=== PATIENT | male | born 1985 | race Caucasian/White ===

== ENCOUNTER 2017-03-04 19:00 | Emergency (ER) | payer OTHER ==
[2016-11-01 10:06] VITALS: Wt 67.1 kg
[~2017-03-04 19:00] MED LIST: AMOX-559 PO; AMOX1TAB9 PO; DIPH-740 PO; DOCU-202 PO; IBUP600T22 PO; IBUP800T37 PO; PANT40TA65 PO; PER PO
--- NOTE | 2017-03-04 19:22 | ER Report ---
History and Physical Time Seen By MD: 19:21 Hx. of Stated Complaint: Patient reports that he hit a rock with his hand while sledding. HPI/ROS CHIEF COMPLAINT: Right hand injury HISTORY OF PRESENT ILLNESS: This is a 31-year-old male who presents to the emergency department for a right hand injury. Peak patient states that he was sledding today and while he was sliding his hand hit a rock at about 2:30 this afternoon since then he's had marked increase in swelling and pain. Patient states he did take 800 mg of ibuprofen about 3:30 this afternoon which helped a little. Patient has also applied ice and has kept it elevated since the injury. Patient denies any other complaints at this time no nausea, vomiting, diarrhea, aches or chills. No complaints of elbow discomfort or shoulder discomfort at this time. REVIEW OF SYSTEMS: Respiratory: No cough, no dyspnea. Cardiovascular: No chest pain, no palpitations. Gastrointestinal: No vomiting, no abdominal pain. Musculoskeletal: As above. Allergies: Coded Allergies: Sulfa (Sulfonamide Antibiotics) (Verified Allergy, Unknown, 08/16/15) swelling itching Home Meds Active Scripts Hydrocodone Bit/Acetaminophen (HYDROCODON-ACETAMINOPHEN 5-325) 1 Each Tablet, 1 EACH PO Q4-6H Y for PAIN, #12 TAB Prov:SUMAYA LEZAMA DESIGN PAINTER-BC 03/04/17 Discontinued Reported Medications Diphenhydramine Hcl (BENADRYL) 25 Mg Capsule, 25 MG PO Q6-8H Y for allergies, CAPSULE 08/16/15 Discontinued Scripts Amoxicillin/Pot Clav 875-125 Mg Tab (AUGMENTIN 875-125 TABLET) 1 Each Tablet, 1 TAB PO BID, #14 TAB Prov:IDA VILLANUEVA MD 11/05/16 Pantoprazole Sodium (PANTOPRAZOLE SODIUM) 40 Mg Tablet.dr, 1 TAB PO QDAY, #20 TAB 0 Refills Take once every day until you are no longer requiring ibuprofen Prov:IDA VILLANUEVA MD 11/04/16 Ibuprofen (IBUPROFEN) 600 Mg Tablet, 1 TAB PO Q6H Y for PAIN, #30 TAB 0 Refills Prov:IDA VILLANUEVA MD 11/04/16 Oxycodone/Acetaminophen (OXYCODONE/ACETAMINOPHEN 5MG/325 MG) 5 Mg/325 Mg Tab, 1- 2 TAB PO Q4H Y for PAIN, #20 TAB 0 Refills Prov:IDA VILLANUEVA MD 11/04/16 Docusate Sodium (DOCUSATE SODIUM) 100 Mg Capsule, 1 CAP PO BID, #30 CAPSULE 0 Refills Prov:IDA VILLANUEVA MD 11/04/16 Amoxicillin/Potassium Clav (AMOX TR-K CLV 875-125 MG TAB) 1 Each Tablet, 1 TAB PO BIDBS, #14 TAB 0 Refills Prov:IDA VILLANUEVA MD 11/04/16 Past Medical/Surgical History Patient has a past medical and surgical history of appendectomy. Reviewed Nurses Notes: Yes Hx Smoking: No Smoking Status: Never Smoker Exposure to Second Hand Smoke?: No Hx Substance Use Disorder: No Hx Alcohol Use: No Constitutional Vital Sign - Last 24 Hours 03/04/17 03/04/17 19:07 21:04 Temp 99.2 Pulse 103 75 Resp 18 16 B/P (MAP) 116/78 115/74 (88) Pulse Ox 97 98 O2 Delivery Room Air Room Air Physical Exam General Appearance: The patient is alert, has no immediate need for airway protection and no current signs of toxicity. Eyes: Pupils equal and round no injection. Respiratory: Chest is non tender, lungs are clear to auscultation. Cardiac: regular rate and rhythm, no murmurs, clicks or rubs. Gastrointestinal: Abdomen is soft and non tender, no masses, bowel sounds normal. Musculoskeletal: Neck: Neck is supple and non tender. Extremities Examination of the Right hand reveals no acute deformity. Marked swelling to the dorsum of right hand. Small amount of crepitus felt over the dorsum of the hand. The patient is able to give a thumbs up sign, is able to make an okay sign, and is able to AB duct the fingers. Sensation is intact over the dorsal 1st web space, the volar aspect of the 2nd finger, and the volar aspect of the 5th finger. Capillary refill is brisk. Skin: No rashes or lesions. DIFFERENTIAL DIAGNOSIS: After history and physical exam differential diagnosis was considered for contusion, fracture. Medical Decision Making EKG/Imaging Imaging FACILITY: [facility] PATIENT NAME: Ramakrishna Sanchez : 1985 MR: [id number] V: [id number] EXAM DATE: ORDERING PHYSICIAN: SUMAYA LEZAMA TECHNOLOGIST: Location: [facility] Patient: Ramakrishna Sanchez : 1985 Visit/Account:[id number] Date of Sevice: 03/04/2017 EXAMINATION: Right hand 3 views HISTORY: Injury. Evaluate for fracture. COMPARISON: None. FINDINGS: Mildly displaced spiral fracture along the proximal and mid shaft of the second metacarpal. Small adjacent osseous fragments. The distal fracture fragment is displaced medially by up to 3 mm. Mildly displaced spiral fracture along the proximal and mid shaft of the third metacarpal. The distal fracture fragment is displaced medially by up to 3 mm. Mild dorsal apex angulation. Mildly displaced spiral fracture along the proximal and mid shaft of the fourth metacarpal, also with up to 3 mm of displacement of the distal fragment. The right fifth metacarpal appears intact. Normal alignment at the CMC and MCP joints. Surrounding soft tissue swelling. No evidence of additional fracture or dislocation in the right hand. IMPRESSION: Mildly displaced spiral fractures along the shafts of the right second, third, and fourth metacarpals. Report Dictated By: Robert Kam MD at 03/04/2017 8:18 PM Report E-Signed By: Robert Kam MD at 03/04/2017 8:23 PM WSN:[id number] ED Course/Re-evaluation ED Course The patient was admitted to room. History physical were obtained. Differential diagnoses were considered. A right hand x-ray was obtained showing a displaced spiral fractures along the shafts of the right 2nd, 3rd and 4th metacarpals. The patient was given 1000 mg of Tylenol. Ice was applied to the hand. The x- rays were reviewed with the patient. The patient was also given 5 mg oxycodone in the ED and sent home with 2 hydrocodone. A prescription for hydrocodone was sent to the patient's pharmacy. I did speak with Dr. Ramirez as noted below. Patient was instructed to follow-up with Dr. Brooks tomorrow or Wednesday for further evaluation of the hand. The patient's hand was splinted he had good CMS following the splint application. I did tell the patient that he will likely need surgery to repair the fractures. The patient had no other questions or concerns at this time and was discharged home. 03/04/2017 8:48:47 pm I did speak with Dr. Ramirez regarding the patient's case , he did review the x-rays. He said go ahead and splint the hand and have him follow up with Dr. Brooks tomorrow or Wednesday. Procedure: Splint placement. A right volar splint was applied. After application of the splint I returned and re-examined the patient. The splint was adequately immobilizing the joint and distal to the splint the patient's circulation and sensation was intact. Decision to Disposition Date: Mar 04, 2017 Decision to Disposition Time: 21:03 Depart Departure Latest Vital Signs Vital Signs Date Time Temp Pulse Resp B/P (MAP) Pulse Ox O2 Delivery O2 Flow Rate FiO2 03/04/17 21:04 75 16 115/74 (88) 98 Room Air 03/04/17 19:07 99.2 Impression: Primary Impression: Fracture of second metacarpal bone of right hand Additional Impressions: Fracture of third metacarpal bone of right hand Fracture of fourth metacarpal bone of right hand Condition: Improved Disposition: HOME OR SELF-CARE Referrals: MONTY BROOKS MD New Scripts Hydrocodone Bit/Acetaminophen (HYDROCODON-ACETAMINOPHEN 5-325) 1 Each Tablet 1 EACH PO Q4-6H Y for PAIN, #12 TAB Prov: SUMAYA LEZAMA DESIGN PAINTER-BC 03/04/17 Patient Instructions: Hand Fracture (ED), Splint Care (ED) Additional Instructions: Drink plenty of fluids. Get plenty of rest. Continue to apply ice to the hand every 2-3 hours for 20min while awake. Keep hand elevated to help with swelling. Please call Dr. Brooks at [facility] tomorrow for follow up. Take the hydrocodone as prescribed, no drinking alcohol or driving while taking narcotics. Be sure to increase your fluid intake and dietary fiber as narcotics can cause constipation. May return to the ED for worsening symptoms. Problem Qualifiers Primary Impression: Fracture of second metacarpal bone of right hand Encounter type: initial encounter Fracture type: closed Metacarpal location : shaft Fracture alignment: displaced Qualified Codes: S62.320A - Displaced fracture of shaft of second metacarpal bone, right hand, initial encounter for closed fracture Additional Impressions: Fracture of third metacarpal bone of right hand Encounter type: initial encounter Fracture type: closed Metacarpal location : shaft Fracture alignment: displaced Qualified Codes: S62.322A - Displaced fracture of shaft of third metacarpal bone, right hand, initial encounter for closed fracture Fracture of fourth metacarpal bone of right hand Encounter type: initial encounter Fracture type: closed Metacarpal location : shaft Fracture alignment: displaced Qualified Codes: S62.324A - Displaced fracture of shaft of fourth metacarpal bone, right hand, initial encounter for closed fracture SUMAYA LEZAMAP-BC Mar 04, 2017 19:22
[2017-03-04] MEDS ORDERED: ACETAMINOPHEN 500 MG TAB PO ONE (19:30)
--- NOTE | 2017-03-04 20:26 | RADIOLOGY IMAGING REPORT ---
FACILITY: [facility] - [place], [place] PATIENT NAME: Ramakrishna Sanchez : 1985 MR: [id number] V: [id number] EXAM DATE: ORDERING PHYSICIAN: SUMAYA LEZAMA TECHNOLOGIST: Location: [facility] [place] Patient: Ramakrishna Sanchez : 1985 Visit/Account:[id number] Date of Sevice: 03/04/2017 EXAMINATION: Right hand 3 views HISTORY: Injury. Evaluate for fracture. COMPARISON: None. FINDINGS: Mildly displaced spiral fracture along the proximal and mid shaft of the second metacarpal. Small adj acent osseous fragments. The distal fracture fragment is displaced medially by up to 3 mm. Mildly displaced spiral fracture along the proximal and mid shaft of the third metacarpal. The distal fracture fragment is displaced medially by up to 3 mm. Mild dorsal apex angulation. Mildly displaced spiral fracture along the proximal and mid shaft of the fourth metacarpal, also with up to 3 mm of displacement of the distal fragment. The right fifth metacarpal appears intact. Normal alignment at the CMC and MCP joints. Surrounding so ft tissue swelling. No evidence of additional fracture or dislocation in the right hand. IMPRESSION: Mildly displaced spiral fractures along the shafts of the right second, third, and fourth metacarpals . Report Dictated By: Robert Kam MD at 03/04/2017 8:18 PM Report E-Signed By: Robert Kam MD at 03/04/2017 8:23 PM WSN:[id number]
[2017-03-04] MEDS ORDERED: oxyCODONE HCL 5 MG CAP PO ONE (20:40)
[2017-03-04] MEDS ORDERED: ACET/HYDROC 5/325MG TH ER ONLY 2 TAB/BOTTLE PO ONE (20:40)
[2017-03-04] MEDS ORDERED: HYDR-385 PO (20:56)
[2017-03-04 21:04] VITALS: BP 115/74
== END 2017-03-04 21:21 | disposition home or self-care (01) ==
LOC: ER 19:07
DX: S62.320A Displaced fracture of shaft of second metacarpal bone, right hand, initial encounter for closed fracture (principal); S62.322A Displaced fracture of shaft of third metacarpal bone, right hand, initial encounter for closed fracture; S62.324A Displaced fracture of shaft of fourth metacarpal bone, right hand, initial encounter for closed fracture; W22.09XA Striking against other stationary object, initial encounter; Y93.23 Activity, snow (alpine) (downhill) skiing, snowboarding, sledding, tobogganing and snow tubing
CPT/HCPCS: 99283; 99284

== ENCOUNTER 2017-03-12 00:21 | Day surgery (SDC) | payer OTHER ==
[2016-11-01 10:06] VITALS: Ht 185.4 cm; Wt 65.3 kg
[2017-03-12] VITALS (7 sets, daily range): BP systolic 111–122; BP diastolic 75–93
[~2017-03-12] VITALS: Ht 185.4 cm; Wt 65.3 kg
[~2017-03-12 00:21] MED LIST changes: +HYDR-385 PO; +IBUP-1687 PO
[2017-03-12] MEDS ORDERED: MINERAL OIL LIGHT 10 ML VIAL ONE (12:42)
[2017-03-12] MEDS ORDERED: ROPIVACAINE 0.2% 20 ML VIAL ONE (12:42)
[2017-03-12] MEDS: FAMOTIDINE 20 MG TAB PO ONE ×2 (13:32→13:44)
[2017-03-12] MEDS ORDERED: FAMOTIDINE 20 MG/50 ML PREMIX IVPB ONE (13:45)
[2017-03-12] MEDS ORDERED: LIDOCAINE/SOD BICARB 8.4% SYR ID ONE (14:30)
[2017-03-12] MEDS ORDERED: ceFAZolin(*) 1 GM VIAL 1 GM in NS(*) 0.9% 100 ML ADDVANT BAG 100 ML IVPB ONE (14:30)
[2017-03-12] MEDS ORDERED: NORMOSOL R SOLN(*) 1000 ML BAG 1,000 ML IV PRN (14:30)
[2017-03-12] MEDS ORDERED: ceFAZolin 1 GM VIAL IVP ONE (14:30)
[2017-03-12] MEDS ORDERED: MIDAZOLAM 2 MG/2 ML VIAL IVP PRN (14:30)
[2017-03-12] MEDS ORDERED: ARTIFICIAL TEARS OINT 7 GM 7 GM TUBE ONE (14:54)
[2017-03-12] MEDS ORDERED: NS 0.9% IRRIGATION 1000ML PLCT IR ONE (15:32)
[2017-03-12] MEDS ORDERED: PROPOFOL EMUL(*) 10MG/ML 20 ML 0 ML ONE (15:34)
[2017-03-12] MEDS ORDERED: PROPOFOL EMUL(*) 10MG/ML 20 ML 20 ML ONE (15:34)
[2017-03-12] MEDS ORDERED: LIDOCAINE MPF 1% 5 ML VIAL ONE ×2 (15:34)
[2017-03-12] MEDS ORDERED: DEXAMETHASONE SOD PHOS 10MG/ML ONE ×2 (15:34)
[2017-03-12] MEDS ORDERED: ONDANSETRON 4 MG/2 ML VIAL ONE ×2 (15:34)
[2017-03-12] MEDS ORDERED: KETOROLAC 30 MG/ML VIAL ONE (15:34)
[2017-03-12] MEDS ORDERED: HYDR-389 PO (16:12)
[2017-03-12] MEDS ORDERED: NEOMYCIN/POLYMYX/BACITR OINT 1 PACKET TP ONE ×2 (17:11→17:31)
[2017-03-12] MEDS ORDERED: fentaNYL CITR 100 MCG/2 ML AMP ONE ×2 (17:39→18:00)
[2017-03-12] MEDS ORDERED: APAP/HYDROCODONE 325/5 TAB ONE (19:26)
[2017-03-12] MEDS ORDERED: HYDR-385 PO (20:27)
[2017-03-12] MEDS ORDERED: CEPH500T7 PO (20:28)
--- NOTE | 2017-03-14 09:33 | OPERATIVE REPORT 1 ---
EVENT DATE: March 12, 2017 SURGEON: Ryan Kamara MD ANESTHESIOLOGIST: Victorino Kwon MD ANESTHESIA: engraver set up operator: Madhu Valladares PA-C PREOPERATIVE DIAGNOSIS Right index, long and ring displaced metacarpal fractures with possible avulsion fracture of radial collateral ligament to long finger. POSTOPERATIVE DIAGNOSIS Right index, long and ring displaced metacarpal fractures with possible avulsion fracture of radial collateral ligament to long finger. No evidence of radial collateral ligament avulsion. PROCEDURE PERFORMED Open reduction and internal fixation of displaced index, long and ring metacarpal fractures with plating only of ring. ESTIMATED BLOOD LOSS Minimal. IVF 1000 crystalloid, no colloid. TOURNIQUET TIME 104 minutes. SPECIMENS No specimens. COMPLICATIONS No complications. IMPLANTS USED [employer] hand set using 1.5 and 2.0 interfragmentary screws for the index and long finger with the same used for the ring finger augmented by a 2.0 locking monroe plate to span the three-part fracture. SUMMARY OF PROCEDURE The patient was brought into the operating room, placed on the OR table in the supine position. A hand table was placed at his right side. After obtaining adequate general anesthesia, the right upper extremity was prepped and draped in usual sterile fashion. The limb was exsanguinated and tourniquet was inflated to 250 mmHg. A longitudinal incision was made over the long metacarpal, deepened through skin and subcutaneous tissue by blunt spreading. We left the extensor tendon within its sheath and spread down along the margins of the extensor mechanism, leaving it fully intact and enclosed within the sheath, going down on the periosteum and it away from the fracture debris. The fragments were found to be slightly comminuted proximally, but the fragments of comminution were extremely small and certainly could not hold a screw, so these were removed. Primarily this was a large oblique two-part fracture. We used a combination of 2.0 and 1.5 mm screws in lag screw fashion, placing four of them, and then moving on to the index finger, where a similar procedure was done, using just three interfragmentary 2.0 screws. We then went to the ring finger, which was a bit more complex. It was a three-part fracture with three long pieces. We initially assembled the middle dorsoulnar piece to the distal fragment that held the head, placing two screws, after which we assembled that construct to the proximal fragment, inserting two additional interfragmentary screws, and then I spanned the entire structure with a 2.0 T plate, locking two screws distally and two screws proximally. We then stress tested the collateral ligament on the long finger and found it to be completely intact, therefore no additional extension of the incision was made to repair this. The wounds were all irrigated. We used 4-0 Vicryl suture to repair the fascial tissue overlying each metacarpal periosteal layer. We then irrigated again and repaired the juncturae tendinum that had been divided when exposing the ring metacarpal, and then finally we deflated the tourniquet, controlled bleeding with bipolar cautery and closed skin with nylon. Dry sterile dressing was given, having injected the skin with local anesthetic, and then we also gave him a volar splint in the position of safety (intrinsic plus). BALDO
== END 2017-03-12 19:54 | disposition home or self-care (01) ==
LOC: OR 00:21
PROVIDERS: ATTEND Orthopaedic Surgery Hand Surgery
DX: S62.320A Displaced fracture of shaft of second metacarpal bone, right hand, initial encounter for closed fracture (principal); S62.322A Displaced fracture of shaft of third metacarpal bone, right hand, initial encounter for closed fracture; S62.324A Displaced fracture of shaft of fourth metacarpal bone, right hand, initial encounter for closed fracture; W22.09XA Striking against other stationary object, initial encounter; Y93.23 Activity, snow (alpine) (downhill) skiing, snowboarding, sledding, tobogganing and snow tubing
CPT/HCPCS: 26615; A4565; C1713; J0690; J1100; J1885; J2001; J2250; J2405; J2704; J2795; J3010; J3490

== ENCOUNTER 2017-06-04 14:30 | Outpatient (RCR) | payer OTHER ==
[2016-11-01 10:06] VITALS: BMI 20.1
--- NOTE | 2017-03-18 10:38 | PT INITIAL EVALUATION ---
MEDICAL DIAGNOSIS: Right hand fracture TREATMENT DIAGNOSIS: same DATE OF ONSET: 03/04/17 SUBJECTIVE: Vasu Sanchez presents to physical therapy following a sled accident on March 04, 2017, in which he punched a rock, resulting in R 2nd, 3rd, and 4th metacarpal fractures that was surgically repaired on the March. He rates his resting wrist/hand/finger pain to be 0/10. He reports that his pain is aggravated when he is required to reginaldo and doff and splint and rates his pain to be 2/10. He reports that his sutures will be removed next Wednesday (03/24/17). He reports that his precautions included the following: no lifting and no weightbearing on hand/wrist/finger. He reports that he has been wearing his splint 28/09. Furthermore, he continues to report increased swelling, bruising, however, he denies any drainage. REHAB PROBLEM LIST: Increased Pain Decreased ROM Decreased Strength Decreased Endurance Decreased Function Decreased ADL's PREVIOUS MEDICAL HISTORY: See EMR OCCUPATION: Day Habilitation Supervisor at [employer] OBJECTIVE: Incision healing well; no drainage; no signs or symptoms of infection. ROM: R wrist PROM: flexion, extension, ulnar and radial deviation: 10-20 limited as compared to L wrist motions. R 2nd, 3rd, 4th, 5th proximal phalanges : 45 degrees with empty end feel as compared to L 2nd, 3rd, 4th, and 5th proximal phalanges: 90 degrees. R 2nd, 3rd, 4th, 5th middle phalanges: 90 degrees with empty end feel. L: middle phalanges: 2nd, 3rd, 4th, 5th: 120 degrees with empty end feel. R distal phalanges: 2nd, 3rd, 4th, 5th: NIL with empty end feels as compared to L distal phalanges. Strength: Did not test due to recent surgical intervention Palpation: TTP: R: 2nd, 3rd, and 4th metacarpals. He noted that he was TTP over his elbow a few days ago, but feels better today. Special Tests: circumferential measurements: R distal metacarpals: 26 cm. L distal metacarpals: 24 cm. R 1st: 7.5 cm, 2nd: 6.5 cm, 3rd: 7 cm, 4th: 7 cm, 5th proximal phalanges: 6 cm. L 1st: 7 cm, 2nd: 6 cm, 3rd: 6 cm, 4th: 6 cm, 5th: 5 cm proximal phalanges. ASSESSMENT: Vasu will benefit from skilled physical therapy addressing the listed impairments to improve function and return to prior level of function. Short Term Goals 3 weeks: Pt will improve R wrist PROM-AROM in all directions that are equal to L wrist PROM-AROM in all directions to improve function and QOL. 3 weeks: Pt will improve R proximal, middle, and distal phalanges PROM-AROM in all direction that are equal to the L proximal, middle, and distal phalanges to improve function and QOL. 6 weeks: Pt will return to prior level of function with full AROM and return to full strength and independent with HEP to improve function and QOL. Patient's Goals improve ROM and be able to return to prior level of function PLAN: Patient to be seen for Manual Therapy/STM/MET Strengthening/condition Ice/Heat Range of Motion Work Hardening/Cond Stretching Neuromuscular Re-ed Closed Chain Program Electrical Stim Home Exercise Program Therapeutic Activities 2-3x/week for 6 Weeks If you have any questions, comments, or concerns about this report or plan, please contact me at . Thank you, Balta Carlson, PT, DPT HALIED
--- NOTE | 2017-04-07 11:03 | PT PLAN OF CARE ---
Physician: Ryan Kamara MD Patient is being seen: 2-3x/week Therapist: Balta Carlson, PT, DPT Medical Diagnosis: Right hand fracture Treatment Diagnosis: same Date of Onset: 03/04/17 Date of Initial Evaluation: 03/17/17 Date patient was last seen: 04/07/17 Number of treatments: 10 Number of cancellations/No shows: 0 INTERVENTIONS: Manual Therapy/STM/MET Strengthening/condition Ice/Heat Range of Motion Work Hardening/Cond Stretching Neuromuscular Re-ed Closed Chain Program Electrical Stim Home Exercise Program Therapeutic Activities Short Term Goals 3 weeks: Pt will improve R wrist PROM-AROM in all directions that are equal to L wrist PROM-AROM in all directions to improve function and QOL. NM 3 weeks: Pt will improve R proximal, middle, and distal phalanges PROM-AROM in all direction that are equal to the L proximal, middle, and distal phalanges to improve function and QOL. MET 6 weeks: Pt will return to prior level of function with full AROM and return to full strength and independent with HEP to improve function and QOL. NM Patient's Goals improve ROM and be able to return to prior level of function Status of Patient's Goals: Progressing well Patient Compliance: Excellent Prognosis: Excellent Reasons for continuing therapy: This is a progress note for Ramakrishna Sanchez. He reports that he continues to progress daily and weekly. He reports that the has returned to the following functional activities that he could not perform following surgery: typing, using his mouse, opening and closing a soda bottle or Nalgene bottle, and collaborating supervising physician things that are not circular. He reports that he continues to have difficulty with gripping circular items, tying his shoes, pinching, fist motions, or requires his hands to pull against each other. He is progressing well within PT with the following improvements: increased proximal to distal phalange PROM-AROM as is equal to L proximal to distal phalanges, increased flexion within his MTP, however this continues to be his greatest limitation, increased extension with his MTP and has return to the same motion as his L hand, furthermore, he continues to improve wrist extension, flexion, radial deviation, and ulnar deviation (his flexion, ulnar/radial deviation continue to be the most limited). He also demonstrated decreased body mechanic apprentice, full body mechanic apprentice motion, and pinching with all digits. Furthermore, he demonstrates fully healed incision with good accessory mobility of his incision. He also demonstrates a significant reduction of swelling. We will continue to improve PROM-AROM of wrist, MTP, and phalanges to return to prior level of function. Posture: ROM: R wrist PROM: flexion, extension (full as compared to L wrist), ulnar and radial deviation: 10 degrees limited as compared to L wrist motions. R 2nd, 3rd , 4th, 5th proximal phalanges: 90 degrees with normal end feel as compared to L 2nd, 3rd, 4th, and 5th proximal phalanges: 90 degrees. R 2nd, 3rd, 4th, 5th middle phalanges: 120 degrees with normal end feel. L: middle phalanges: 2nd, 3rd, 4th, 5th: 120 degrees with normal end feel. R distal phalanges: 2nd, 3rd, 4th, 5th: NIL with normal end feels as compared to L distal phalanges. Strength: Did not test due to recent surgical intervention Palpation: TTP: R: 2nd, 3rd, and 4th metacarpals. He noted that he was TTP over his elbow a few days ago, but feels better today. Special Tests: circumferential measurements: R distal metacarpals: 24.5 cm. L distal metacarpals: 24 cm. R 1st: 6 cm, 2nd: 6 cm, 3rd: 6 cm, 4th: 6 cm, 5th proximal phalanges: 5 cm. L 1st: 7 cm, 2nd: 6 cm, 3rd: 6 cm, 4th: 6 cm, 5th: 5 cm proximal phalanges. If you have any questions, please contact me at [phone]. Thank you, Balta Carlson, PT, DPT BALDO
--- NOTE | 2017-05-06 14:29 | PT PLAN OF CARE ---
Physician: Ryan Kamara MD Patient is being seen: 2-3x/week Therapist: Balta Carlson, PT, DPT Medical Diagnosis: Right hand fracture Treatment Diagnosis: same Date of Onset: 03/04/17 Date of Initial Evaluation: 03/17/17 Date patient was last seen: 05/06/17 Number of treatments: 21 Number of cancellations/No shows: 0 INTERVENTIONS: Manual Therapy/STM/MET Strengthening/condition Ice/Heat Range of Motion Work Hardening/Cond Stretching Neuromuscular Re-ed Closed Chain Program Electrical Stim Home Exercise Program Therapeutic Activities Short Term Goals 3 weeks: Pt will improve R wrist PROM-AROM in all directions that are equal to L wrist PROM-AROM in all directions to improve function and QOL. NM 3 weeks: Pt will improve R proximal, middle, and distal phalanges PROM-AROM in all direction that are equal to the L proximal, middle, and distal phalanges to improve function and QOL. MET 6 weeks: Pt will return to prior level of function with full AROM and return to full strength and independent with HEP to improve function and QOL. NM Patient's Goals improve ROM and be able to return to prior level of function Status of Patient's Goals: Progressing well Patient Compliance: Excellent Prognosis: Excellent Reasons for continuing therapy: This is a progress note for Ramakrishna Sanchez. He reports that he feels like he continues to improve, however, he reports that he continues to have swelling on the posterior side of his hand. He reports that the has returned to the following functional activities that he could not perform following surgery: typing, using his mouse, opening and closing a soda bottle or Nalgene bottle, painter airbrush things that are circular, improved fist motion, and able to pinch all fingers. He reports that he continues to have difficulty with gripping small items, tying his shoes , or requires his hands to pull against each other. He is progressing well within PT with the following improvements: increased proximal to distal phalange PROM-AROM as is equal to L proximal to distal phalanges, increased flexion within his MCP, however this continues to be his greatest limitation, increased extension with his MCP and has return to the same motion as his L hand, furthermore, he his R wrist motions have returned to be equal to the L wrist motions. 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 Furthermore, he demonstrates fully healed incision with good accessory mobility of his incision. He also demonstrates a significant reduction of swelling, however, he continues to have the swelling. We will continue to improve PROM-AROM of wrist, MTP, and phalanges to return to prior level of function. Posture: ROM: R wrist PROM: flexion, extension (full as compared to L wrist), ulnar and radial deviation: equal as compared to L wrist motions. R 2nd, 3rd, 4th, 5th proximal phalanges: 95 degrees with normal end feel as compared to L 2nd, 3rd, 4th, and 5th proximal phalanges: 95-100 degrees. R 2nd, 3rd, 4th, 5th middle phalanges: 120 degrees with normal end feel. L: middle phalanges: 2nd, 3rd, 4th , 5th: 120 degrees with normal end feel. R distal phalanges: 2nd, 3rd, 4th, 5th : NIL with normal end feels as compared to L distal phalanges. Strength: Did not test due to recent surgical intervention Palpation: TTP: R: 2nd, 3rd, and 4th metacarpals. Special Tests: circumferential measurements: R distal metacarpals: 24.5 cm. L distal metacarpals: 24 cm. R 1st: 6 cm, 2nd: 6 cm, 3rd: 6 cm, 4th: 6 cm, 5th proximal phalanges: 5 cm. L 1st: 7 cm, 2nd: 6 cm, 3rd: 6 cm, 4th: 6 cm, 5th: 5 cm proximal phalanges. If you have any questions, please contact me at [phone]. Thank you, Balta Carlson, PT, DPT HALIED
[~2017-06-04 14:30] MED LIST changes: +CEPH500T7 PO; +HYDR-389 PO
--- NOTE | 2017-06-04 15:32 | PT PLAN OF CARE ---
Physician: Ryan Kamara MD Patient is being seen: 2x/week Therapist: Balta Carlson, PT, DPT Medical Diagnosis: Right hand fracture Treatment Diagnosis: same Date of Onset: 03/04/17 Date of Initial Evaluation: 03/17/17 Date patient was last seen: 06/02/17 Number of treatments: 28 Number of cancellations/No shows: 0 INTERVENTIONS: Manual Therapy/STM/MET Strengthening/condition Ice/Heat Range of Motion Work Hardening/Cond Stretching Neuromuscular Re-ed Closed Chain Program Electrical Stim Home Exercise Program Therapeutic Activities Short Term Goals 3 weeks: Pt will improve R wrist PROM-AROM in all directions that are equal to L wrist PROM-AROM in all directions to improve function and QOL. Met 3 weeks: Pt will improve R proximal, middle, and distal phalanges PROM-AROM in all direction that are equal to the L proximal, middle, and distal phalanges to improve function and QOL. MET 6 weeks: Pt will return to prior level of function with full AROM and return to full strength and independent with HEP to improve function and QOL. MET Patient's Goals improve ROM and be able to return to prior level of function Status of Patient's Goals:Met Patient Compliance: Excellent Prognosis: Excellent Reasons for continuing therapy: This is a discharge note for Ramakrishna Sanchez. He reports that he is doing well. He reports that his hand has not limited him in any such activities since the previous session. He does report increased soreness with his 4th and 5th digit during approximately 45 minutes of utilizing his mouse during PC games. He also reports that he feels like it occurred due to increasing his PC playing time too quickly and has cut back and feels like the hand is doing well and back to the normal state that it was prior to it becoming sore with the [employer] games. He reports that he feels confident in the stretching and strengthening techniques. Vasu has demonstrated significant improvements with the following items: improvements with psychiatric assistant strength from 40# to 75#, increased 3 pinch strength from 11# to 19#, increased lateral psychiatric assistant strength from 8.25# to 34.25#, increased R wrist (in all directions ) full with normal end feels, R proximal, middle, and distal phalanges: full with normal end feels, R 1-3th and 5th metacarpals: full with normal end feels, and R 4th metacarpal: slightly limited into flexion, full into extension with muscular end feel. He is independent on his home exercise program to continue to improve strength, flexibility, and endurance to return to prior level of function. As a result, he will be discharged from PT. ROM: R wrist (in all directions) full with normal end feels, R proximal, middle , and distal phalanges: full with normal end feels, R 1-3th and 5th metacarpals : full with normal end feels, and R 4th metacarpal: slightly limited into flexion, full into extension with muscular end feel. 40# to 75#, increased 3 pinch strength from 11# to 19#, increased lateral psychiatric assistant strength from 8.25# to 34.25# Palpation: No longer TTP If you have any questions, please contact me at [phone]. Thank you, Balta Carlson, PT, DPT MTDD
== END 2017-06-04 18:00 | disposition home or self-care (01) ==
LOC: PT 14:30
PROVIDERS: ATTEND Orthopaedic Surgery Hand Surgery
DX: Z47.89 Encounter for other orthopedic aftercare (principal); S62.390A Other fracture of second metacarpal bone, right hand, initial encounter for closed fracture; S62.392A Other fracture of third metacarpal bone, right hand, initial encounter for closed fracture; S62.394A Other fracture of fourth metacarpal bone, right hand, initial encounter for closed fracture; V00.222A Sledder colliding with stationary object, initial encounter; Y93.23 Activity, snow (alpine) (downhill) skiing, snowboarding, sledding, tobogganing and snow tubing
CPT/HCPCS: 97161

== ENCOUNTER → 2017-07-30 | Outpatient (REF) ==
[2016-11-01 10:06] VITALS: BMI 20.1
[~2017-07-30] MED LIST changes: +TOBR5DRO OP
[2017-07-30 12:39] LABS: LDL CHOLESTEROL 109 mg/dl
== END ==
DX: Z02.9 Encounter for administrative examinations, unspecified (principal)

== ENCOUNTER 2017-12-29 00:39 | Day surgery (SDC) | payer OTHER ==
[2016-11-01 10:06] VITALS: Ht 185.4 cm; Wt 65.8 kg
[~2017-12-29] VITALS: Ht 185.4 cm; Wt 65.8 kg
[~2017-12-29 00:39] MED LIST changes: +CETI-169 PO; +NAPR220C12 PO; +SERT-1 PO; +ceFAZolin(*) 1 GM VIAL 1 GM in NS(*) 0.9% 100 ML ADDVANT BAG 100 ML IV ONE
[2017-12-29] MEDS ORDERED: ceFAZolin(*) 1 GM VIAL 1 GM in NS(*) 0.9% 100 ML ADDVANT BAG 100 ML IVPB ONE (11:00)
[2017-12-29 12:02] VITALS: BP 116/80
[2017-12-29] MEDS ORDERED: DEXAMETHASONE SOD 4 MG/ML VIAL ONE (12:13)
[2017-12-29] MEDS ORDERED: PROPOFOL EMUL(*) 10MG/ML 20 ML 20 ML ONE (12:13)
[2017-12-29] MEDS ORDERED: fentaNYL CITR 100 MCG/2 ML AMP ONE ×2 (12:13→14:38)
[2017-12-29] MEDS ORDERED: ONDANSETRON 4 MG/2 ML VIAL ONE (12:13)
[2017-12-29] MEDS ORDERED: LIDOCAINE MPF 1% 5 ML VIAL ONE (12:13)
[2017-12-29] MEDS ORDERED: KETAMINE HCL 200 MG/20 ML MDV ONE (12:14)
[2017-12-29] MEDS ORDERED: FAMOTIDINE 20 MG TAB PO ONE (12:30)
[2017-12-29] MEDS ORDERED: NORMOSOL R SOLN(*) 1000 ML BAG 1,000 ML IV PRN (12:30)
[2017-12-29] MEDS ORDERED: LIDOCAINE/SOD BICARB 8.4% SYR ID ONE (12:30)
[2017-12-29] MEDS ORDERED: MIDAZOLAM 2 MG/2 ML VIAL IVP PRN (12:30)
[2017-12-29] MEDS ORDERED: NEOMYCIN/POLYMYX/BACITR 30 GM TP ONE (12:53)
[2017-12-29] MEDS ORDERED: ROPIVACAINE 0.2% 20 ML VIAL ONE (12:53)
[2017-12-29] MEDS ORDERED: HYDR-385 PO (15:22)
[2017-12-29] MEDS ORDERED: CEPH500T7 PO (15:23)
--- NOTE | 2017-12-29 15:25 | OPERATIVE REPORT 1 ---
EVENT DATE: December 29, 2017 SURGEON: Ryan Kamara MD ANESTHESIOLOGIST: Terry Kye MD ANESTHESIA: General. BODY PRESSER: VINCE Jones PREOPERATIVE DIAGNOSIS Retained hardware, right hand, status post open reduction and internal fixation of three metacarpal fractures with symptoms stemming from plate at ring finger and tendon adhesion. POSTOPERATIVE DIAGNOSIS Retained hardware, right hand, status post open reduction and internal fixation of three metacarpal fractures with symptoms stemming from plate at ring finger and tendon adhesion. PROCEDURES PERFORMED 1. Right ring extensor tenolysis at extensor digitorum communis ring (69485). 2. Right ring hardware removal at ring metacarpal including both dorsal plate along with interfragmentary screws (08139). ESTIMATED BLOOD LOSS Minimal. INTRAVENOUS FLUIDS Crystalloid 1300, no colloid. TOURNIQUET TIME 18 minutes. SPECIMENS No specimens. COMPLICATIONS No complications. IMPLANTS USED No implants (hardware was given to the patient). SUMMARY OF PROCEDURE The patient was brought into the operating room and placed on the OR table in the supine position. We started with an adequate prep and drape, followed by exsanguination and tourniquet inflation to 250 mmHg. The old incision was reopened, but I also excised a portion of the scar that was a bit wider than normal. We then mobilized the soft tissues, moving over towards the ring finger metacarpal. There were adhesions causing the EDC ring to be adherent to surrounding tissues along with its juncturae tendinum. These tissues were fully released to offer a more smooth motion, and then I made an incision overlying the bone to expose the plate. The four screws in the plate were removed, and then the plate was mobilized and removed, followed by use of a curette to expose the interfragmentary screw heads, which were also removed. The wounds were irrigated. We checked the x-ray to make sure no residual hardware was present in the ring metacarpal, after which this tissue was washed one last time before deflating the tourniquet, controlling bleeding with bipolar cautery, and then going ahead with skin closure. He was given a dry, sterile compression dressing and was awakened and transferred to the recovery area in stable condition. BALDO
[2017-12-29 15:45] VITALS: BP 109/73
[2017-12-29 16:00] VITALS: BP 107/77
[2017-12-29] MEDS ORDERED: APAP/HYDROCODONE 325/5 TAB PO ONE (16:05)
[2017-12-29 16:30] VITALS: BP 113/72
[2017-12-29 16:32] VITALS: BP 106/76
[2017-12-29 16:33] VITALS: BP 107/74
== END 2017-12-29 15:45 | disposition home or self-care (01) ==
LOC: OR 00:39
PROVIDERS: ATTEND Orthopaedic Surgery Hand Surgery
DX: T84.84XA Pain due to internal orthopedic prosthetic devices, implants and grafts, initial encounter (principal)
CPT/HCPCS: 20680; 26445; 76000; J0690; J1100; J2001; J2250; J2405; J2704; J2795; J3010; J3490; J7050

== ENCOUNTER 2018-01-02 10:58 | Emergency (ER) | payer OTHER ==
[2016-11-01 10:06] VITALS: Wt 66.2 kg
[~2018-01-02 10:58] MED LIST changes: -ceFAZolin(*) 1 GM VIAL 1 GM in NS(*) 0.9% 100 ML ADDVANT BAG 100 ML IV ONE
--- NOTE | 2018-01-02 11:00 | ER Report ---
History and Physical Time Seen By MD: 11:00 HPI/ROS CHIEF COMPLAINT: Slip and fall facial laceration HISTORY OF PRESENT ILLNESS: Patient is 32-year-old male who states that he slipped and shower when he became dizzy this morning. Patient states that he recently had some hand surgery for removal of hardware. Today was the 1st day he took the bandage off. He states he became lightheaded slipped and fell in the shower landing on his left side resulting in a 3 cm laceration just above the left eyebrow as well as contusion to the left jain area. Patient is unsure of his last tetanus shot. Allergies: Coded Allergies: Sulfa (Sulfonamide Antibiotics) (Verified Allergy, Unknown, 01/02/18) swelling itching Home Meds Active Scripts Sertraline Hcl (ZOLOFT) 50 Mg Tablet, 1 TAB PO QDAY for 90 Days, #90 TAB 3 Refills Prov:TOMER PIMENETL DNP, RESIDENTIAL AIR SEALING TECHNICIAN-BC 11/01/17 Discontinued Reported Medications Cephalexin 500 Mg Tab (KEFLEX 500 MG TAB) 500 Mg Tablet, 500 MG PO Q6H for 3 Days, #12 TAB 12/29/17 Hydrocodone Bit/Acetaminophen (HYDROCODON-ACETAMINOPHEN 5-325) 1 Each Tablet, 1- 2 TAB PO Q4-6H PRN for PAIN, #20 TAB 12/29/17 Cetirizine Hcl (CETIRIZINE HCL) 10 Mg Tablet, 10 MG PO QDAY for ALLERGIES, TAB 12/23/17 Naproxen Sodium (ALEVE) 220 Mg Capsule, 220 MG PO PRN, CAPSULE 09/20/17 Diphenhydramine Hcl (BENADRYL) 25 Mg Capsule, 100 MG PO HS, CAPSULE 03/11/17 Past Medical/Surgical History Noncontributory Hx Smoking: No Smoking Status: Never Smoker Exposure to Second Hand Smoke?: No Hx Substance Use Disorder: No Hx Alcohol Use: No Constitutional Vital Sign - Last 24 Hours 01/02/18 11:02 Temp 97.7 Pulse 71 Resp 14 B/P (MAP) 122/85 Pulse Ox 92 O2 Delivery Room Air Physical Exam General appearance: Alert no distress. Head: contusion to left parietal area. No swelling Skin: 3 cm horizontal laceration just above the left eyebrow. Bleeding is controlled. Medical Decision Making Data Points Result Diagram: 01/02/18 1132 Laboratory Hematology Test 01/02/18 11:32 Red Blood Count 5.52 M/uL (4.00-5.60) Mean Corpuscular Volume 87.7 fL (80.0-96.0) Mean Corpuscular Hemoglobin 30.4 pg (26.0-33.0) Mean Corpuscular Hemoglobin Concent 34.7 g/dL (32.0-36.0) Red Cell Distribution Width 13.8 % (11.5-14.5) Mean Platelet Volume 7.4 fL (7.2-11.1) Neutrophils (%) (Auto) 50.2 % (39.4-72.5) Lymphocytes (%) (Auto) 37.7 % (17.6-49.6) Monocytes (%) (Auto) 5.7 % (4.1-12.4) Eosinophils (%) (Auto) 5.5 % (0.4-6.7) Basophils (%) (Auto) 0.9 % (0.3-1.4) Nucleated RBC Relative Count (auto) 0.1 /100WBC Neutrophils # (Auto) 1.8 K/uL (2.0-7.4) Lymphocytes # (Auto) 1.3 K/uL (1.3-3.6) Monocytes # (Auto) 0.2 K/uL (0.3-1.0) Eosinophils # (Auto) 0.2 K/uL (0.0-0.5) Basophils # (Auto) 0.0 K/uL (0.0-0.1) Nucleated RBC Absolute Count (auto) 0.00 K/uL Chemistry Test 01/02/18 11:32 White Blood Count 3.6 k/uL (4.5-11.0) Red Blood Count 5.52 M/uL (4.00-5.60) Hemoglobin 16.8 g/dL (14.0-18.0) Hematocrit 48.4 % (42.0-52.0) Mean Corpuscular Volume 87.7 fL (80.0-96.0) Mean Corpuscular Hemoglobin 30.4 pg (26.0-33.0) Mean Corpuscular Hemoglobin Concent 34.7 g/dL (32.0-36.0) Red Cell Distribution Width 13.8 % (11.5-14.5) Platelet Count 238 K/uL (150-450) Mean Platelet Volume 7.4 fL (7.2-11.1) Neutrophils (%) (Auto) 50.2 % (39.4-72.5) Lymphocytes (%) (Auto) 37.7 % (17.6-49.6) Monocytes (%) (Auto) 5.7 % (4.1-12.4) Eosinophils (%) (Auto) 5.5 % (0.4-6.7) Basophils (%) (Auto) 0.9 % (0.3-1.4) Nucleated RBC Relative Count (auto) 0.1 /100WBC Neutrophils # (Auto) 1.8 K/uL (2.0-7.4) Lymphocytes # (Auto) 1.3 K/uL (1.3-3.6) Monocytes # (Auto) 0.2 K/uL (0.3-1.0) Eosinophils # (Auto) 0.2 K/uL (0.0-0.5) Basophils # (Auto) 0.0 K/uL (0.0-0.1) Nucleated RBC Absolute Count (auto) 0.00 K/uL ED Course/Re-evaluation ED Course 01/02/2018 12:03:41 pm Procedure: Laceration repair. Verbal consent was obtained from the patient. The centimeter laceration on the upper left eyebrow area was anesthetized in the usual fashion. The wound was cleansed, draped and explored to its base with a gloved finger. [ ] There were no deep structures involved. The wound was repaired with 5 single interrupted 5-0 Prolene sutures. The wound repair was simple. The procedure was performed by myself. Decision to Disposition Date: Jan 02, 2018 Decision to Disposition Time: 12:04 Depart Departure Latest Vital Signs Vital Signs Date Time Temp Pulse Resp B/P (MAP) Pulse Ox O2 Delivery O2 Flow Rate FiO2 01/02/18 11:02 97.7 71 14 122/85 92 Room Air Impression: Primary Impression: Facial laceration Additional Impression: Abrasion Condition: Improved Disposition: HOME OR SELF-CARE Patient Instructions: Abrasion (ED), Facial Laceration (ED) Additional Instructions: Follow-up with your primary care provider in 3-5 days for suture removal or sooner for signs or symptoms of infection as discussed Problem Qualifiers Primary Impression: Facial laceration Encounter type: initial encounter Qualified Codes: S01.81XA - Laceration without foreign body of other part of head, initial encounter YONG BLAKELY MD Jan 02, 2018 11:00
[2018-01-02] MEDS ORDERED: TETRACAIN/EPI/LIDO GEL 3ML SYR TP ONE (11:10)
[2018-01-02] MEDS ORDERED: DIPHTH/TETANUS/ACEL. PERTUSSIS IM ONLY ONE (11:10)
--- NOTE | 2018-01-02 11:30 | EKG ---
[place] [facility] [place] NAME: TATIANA LUQUE : [id number] MR: [id number] V: [id number] EXAM DATE: ORDERING PHYSICIAN: YONG BLAKELY TECHNOLOGIST: VANESA Loving Reason : SYNCOPE Blood Pressure : / mmHG Vent. Rate : 062 BPM Atrial Rate : 062 BPM P-R Int : 146 ms QRS Dur : 084 ms QT Int : 388 ms P-R-T Axes : 063 068 059 degrees QTc Int : 393 ms Normal sinus rhythm Normal ECG No previous ECGs available Confirmed by Lc Bueno ([id number]) on 01/02/2018 11:18:56 PM Referred By: REDDY Confirmed By:Lc Anglin
[2018-01-02 11:44] LABS: PLATELET COUNT, AUTOMATED 238 K/uL (150-450)
[2018-01-02 12:00] VITALS: BP 113/74
== END 2018-01-02 12:15 | disposition home or self-care (01) ==
LOC: ER 11:20
DX: S01.112A Laceration without foreign body of left eyelid and periocular area, initial encounter (principal); S00.83XA Contusion of other part of head, initial encounter; R55 Syncope and collapse
CPT/HCPCS: 36415; 82310; 82374; 82435; 82565; 82947; 84132; 84295; 84520; 85025; 90471; 90715; 93005; 99283

== ENCOUNTER → 2018-02-07 | Outpatient (CLI) | payer OTHER ==
[2016-11-01 10:06] VITALS: BMI 20.1
[2018-02-07 12:49] LABS: PLATELET COUNT, AUTOMATED 246 K/uL (150-450)
== END ==
LOC: LAB 12:36
PROVIDERS: ATTEND Nurse Practitioner Primary Care
DX: D72.819 Decreased white blood cell count, unspecified (principal)
CPT/HCPCS: 36415; 82040; 82247; 82310; 82374; 82435; 82565; 82947; 84075; 84132; 84155; 84295; 84450; 84460; 84520; 85025

== ENCOUNTER → 2018-03-21 | Outpatient (REF) | payer OTHER ==
[2016-11-01 10:06] VITALS: BMI 20.1
[~2018-03-21] MED LIST changes: +GUAI120L3 PO; +OFLO5DRO45 OT; +VANC125C3 PO; +Work Note
== END ==
LOC: ZZSENDIN 09:01
PROVIDERS: ATTEND Nurse Practitioner Primary Care
DX: R19.7 Diarrhea, unspecified (principal)
CPT/HCPCS: 82274; 83630; 87045; 87493

== ENCOUNTER → 2018-04-26 | Outpatient (CLI) | payer OTHER ==
[2016-11-01 10:06] VITALS: BMI 20.1
== END ==
LOC: LAB 11:31
PROVIDERS: ATTEND Nurse Practitioner Primary Care
DX: J06.9 Acute upper respiratory infection, unspecified (principal)
CPT/HCPCS: 87502

== ENCOUNTER → 2018-07-21 | Outpatient (REF) ==
[2016-11-01 10:06] VITALS: BMI 20.1
[~2018-07-21] MED LIST changes: -VANC125C3 PO; +VANC125C4 PO
[2018-07-21 14:03] LABS: LDL CHOLESTEROL 148 mg/dl
== END ==
DX: Z02.9 Encounter for administrative examinations, unspecified (principal)